=== PATIENT | female | born 1990 | race Caucasian/White ===

== ENCOUNTER → 2023-05-06 09:51 | Outpatient (REF) | payer OTHER, SELFPAY | LOC: WDC 09:51 | PROVIDERS: ATTENDING PHYSICIAN Physician Assistant Medical | DX: N63.10 Unspecified lump in the right breast, unspecified quadrant (principal); N63.12 Unspecified lump in the right breast, upper inner quadrant; N63.24 Unspecified lump in the left breast, lower inner quadrant | CPT/HCPCS: 76642; 77062; 77066 ==